=== PATIENT | female | born 1990 | race African-American/Black ===

== ENCOUNTER 2020-08-14 05:47 | Emergency (ER) | payer MEDICAID, OTHER ==
[~2020-08-14] VITALS: Ht 170.2 cm; Wt 60.0 kg
[~2020-08-14 05:47] MED LIST: PARAGUARD
[2020-08-14 05:54] VITALS: BP 120/68
[2020-08-14 08:33] LABS: HCG SCREEN NEGATIVE
== END 2020-08-14 12:27 | disposition home or self-care (01) ==
LOC: ER 05:47
DX: S00.33XA Contusion of nose, initial encounter (principal); W22.8XXA Striking against or struck by other objects, initial encounter; Y93.89 Activity, other specified; Y92.89 Other specified places as the place of occurrence of the external cause; Y99.8 Other external cause status
CPT/HCPCS: 70160; 81025; 84703; 99284